=== PATIENT | male | born 1995 | race Caucasian/White ===

== ENCOUNTER 2017-07-13 10:37 | Emergency (ER) | payer OTHER ==
--- NOTE | 2017-07-13 10:45 | PDOC ---
History of Present Illness - General Chief Complaint: Injury Stated Complaint: NOSE INJURY Time Seen by Provider: 07/13/17 10:45 History Source: Patient Exam Limitations: No Limitations - History of Present Illness Initial Comments: 07/13/17 10:58 Pt presents to the ED complaining of pain and swelling to the left side of his nose after hitting his face against a dresser yesterday. Patient did not have LOC, or experience any other associated symptoms. Presents to the ED today because his nose became swollen and he is concerned that he may have a broken nose. Denies nose bleeds, pain or swelling to his eyes or visual complaints. Past History - Past Medical History Allergies/Adverse Reactions: Allergies Allergy/AdvReac Type Severity Reaction Status Date / Time No Known Allergies Allergy Verified 01/23/12 18:47 Home Medications: Ambulatory Orders NK [No Known Home Medication] 07/13/17 Psychiatric Problems: Yes Suicide Attempt (Hx): Yes - Immunization History Immunization Up to Date: Yes - Psycho/Social/Smoking Cessation Hx Anxiety: Yes Suicidal Ideation: No Smoking Status: Yes Smoking History: Current every day smoker Years of Tobacco Use: 0 Have you smoked in the past 12 months: Yes Number of Cigarettes Smoked Daily: 40 'Breaking Loose' booklet given: 02/16/15 Hx Alcohol Use: No Drug/Substance Use Hx: Yes Substance Use Type: Marijuana Review of Systems - Review of Systems Able to Perform ROS?: Yes Is the patient limited Maltese proficient: No HEENTM: Yes: Nose Pain. No: Symptoms Reported, See HPI, Eye Pain, Blurred Vision, Tearing, Recent change in vision, Double Vision, Cataracts, Ear Pain, Ocular Prothesis, Ear Discharge, Nose Congestion, Tinnitus, Nose Bleeding, Hearing Loss, Throat Pain, Throat Swelling, Mouth Pain, Dental Problems, Difficulty Swallowing, Mouth Swelling, Other *Physical Exam - Physical Exam Comments: 07/13/17 11:08 HEENT: positive: EOMI (+ tender, ecchymotic area to L side of nose. No septal hematoma. No other facial bone tenderness. ), CHANNING Neck: positive: Supple (no midline tenderness) Medical Decision Making - Medical Decision Making 07/13/17 10:52 Pt presents to the ED complaining of pain and swelling to his nose after striking his face on a dresser yesterday. Offered CT to evaluate for nasal bone fx, but does not want to wait. Will discharge home with referral to plastic surgery. 07/13/17 11:09 *DC/Admit/Observation/Transfer Diagnosis at time of Disposition: Traumatic ecchymosis of nose Qualifiers: Encounter type: initial encounter Qualified Code(s): S00.33XA - Contusion of nose, initial encounter - Discharge Dispostion Disposition: HOME Condition at time of disposition: Good - Referrals Referrals: Zack Colon MD [Staff Physician] - - Patient Instructions Printed Discharge Instructions: DI for Eye Contusion Additional Instructions: use ice on your nose for the next two days. Try to avoid nose blowing. Return to the ED for severe pain or swelling, changes in your vision, new or worsening symptoms.
[2017-07-13 10:51] VITALS: BP 120/65; PULSE 60; TEMP 98.1
== END 2017-07-13 11:10 | disposition home or self-care (01) ==
LOC: FER 10:37
DX: S00.33XA Contusion of nose, initial encounter (principal); W22.03XA Walked into furniture, initial encounter; Y93.89 Activity, other specified; Y92.009 Unspecified place in unspecified non-institutional (private) residence as the place of occurrence of the external cause; F17.210 Nicotine dependence, cigarettes, uncomplicated
CPT/HCPCS: 99283-25

== ENCOUNTER 2018-09-15 03:31 | Emergency (ER) | payer OTHER ==
[2018-09-15 03:52] VITALS: BP 111/68; PULSE 90; TEMP 100; BMI 20.2
--- NOTE | 2018-09-15 03:54 | PDOC ---
History of Present Illness - General Chief Complaint: Rash Stated Complaint: SORE THROAT/RASH Time Seen by Provider: 09/15/18 03:53 History Source: Patient Exam Limitations: No Limitations - History of Present Illness Initial Comments: 09/15/18 04:03 This is a 23-year-old male who comes in complaining of fever, sore throat, rash and feeling poorly times one day. The patient's immunizations are otherwise up-to-date. Patient denies history of strep throat in the past. PAST MEDICAL HISTORY: no significant history PAST SURGICAL HISTORY: no significant history FAMILY HISTORY: no pertinant history SOCIAL HISTORY: Pt lives with family and is employed. MEDICATIONS: reviewed ALLERGIES: As per nursing notes ROS General: + fevers or chills, no weakness, no weight loss HEENT: No change in vision. + sore throat,. No ear pain CardioVascular: No chest pain or shortness of breath Respiratory:No cough, or wheezing. Gastrointestinal: no nausea, vomiting, diarrhea or constipation, No rectal bleeding Genitourinary: No dysuria, hematuria, or frequency Musculoskeletal: . No joint pain or swelling Neurologic: No headache, vertigo, dizziness or loss of consciousness Psychiatric: nor depression Skin: No rashes or easy bruising Endocrine: no increased thirst or abnormal weight change Allergic: no skin or latex allergy, +rash All other systems reviewed and normal Exam: General: Well-nourished well-developed individual, no acute distress HEENT: Throat: Normal, tonsils normal, tonsils are enlarged bilaterally with an exudative pharyngitis Neck: Supple, no meningeal signs, bilateral submandibular lymphadenopathy Eyes::Pupils equal reactive and round, extraocular motion intact Chest: Nontender to palpation Cardiac: S1-S2 normal, regular rate and rhythm, no murmurs rubs or gallops Respiratory: Lungs clear to auscultation bilateral Abdomen: Soft, nondistended, normal bowel sounds, there is no tenderness on palpation diffusely Extremities: Warm, dry, no cyanosis, clubbing, or edema Skin: There is a fine malar rash over the trunk and extremities neck and face. There are areas of confluence. Neuro: Alert and oriented x3, CN II - XII intact, nonfocal exam with normal strength, normal sensation, normal reflexes, normal gait, Psych: Normal mood and affect Assessment and plan: This is a 23-year-old male who comes in with rash sore throat and fever. Patient symptoms are consistent with scarlet fever. Patient given Benadryl for the itching Bicillin L-A for the strep pharyngitis and 1 time dose of Decadron for the inflammation in the throat. Patient discharged home with his mother Past History - Past Medical History Allergies/Adverse Reactions: Allergies Allergy/AdvReac Type Severity Reaction Status Date / Time No Known Allergies Allergy Verified 01/23/12 18:47 Home Medications: Ambulatory Orders NK [No Known Home Medication] 07/13/17 COPD: No Psychiatric Problems: Yes - Immunization History Immunization Up to Date: Yes - Suicide/Smoking/Psychosocial Hx Smoking Status: Yes Smoking History: Current every day smoker Years of Tobacco Use: 0 Have you smoked in the past 12 months: Yes Number of Cigarettes Smoked Daily: 40 Information on smoking cessation initiated: Yes 'Breaking Loose' booklet given: 09/15/18 Hx Alcohol Use: No Drug/Substance Use Hx: Yes Substance Use Type: Marijuana *Physical Exam - Vital Signs Last Vital Signs Temp Pulse Resp BP Pulse Ox 100 F H 90 18 111/68 99 09/15/18 03:32 09/15/18 03:32 09/15/18 03:32 09/15/18 03:32 09/15/18 03:32 *DC/Admit/Observation/Transfer Diagnosis at time of Disposition: Scarlet fever - Discharge Dispostion Disposition: HOME Condition at time of disposition: Stable Decision to Admit order: No - Referrals Referrals: Mike Varela MD [Primary Care Provider] - - Patient Instructions Additional Instructions: [place] has scarlet fever. He was treated with antibiotics with a one-time shot that will last for the full 10 days, Otherwise Tylenol or Motrin as needed for pain or fevers Benadryl as needed for itching. Return to the emergency department immediately with ANY new, persistent or worsening symptoms. Continue any medications as previously prescribed by your physician. You should follow up with your primary doctor as soon as possible regarding today's emergency department visit. . Please make sure your doctor reviews the results of your emergency evaluation. Thank you for coming to the Emergency Department today for your care. It was a pleasure to see you today. Please note that your evaluation is INCOMPLETE until you follow-up with your doctor. - Post Discharge Activity
[2018-09-15] MEDS ORDERED: PENICILLIN G BENZATHINE 1,200,000 UNIT/2 ML PFS IM ONE ×2 (03:56→04:00)
[2018-09-15] MEDS ORDERED: DEXAMETHASONE SOD PHOSPHATE 10 MG/1 ML VIAL IM ONE (04:02)
[2018-09-15] MEDS ORDERED: diphenhydrAMINE HCL 25 MG CAPSULE (FP) PO ONE (04:05)
[2018-09-15] MEDS ORDERED: DEXAMETHASONE SOD PHOSPHATE 10 MG/1 ML VIAL ONE (04:05)
[2018-09-15] MEDS ORDERED: diphenhydrAMINE HCL 50 MG CAPSULE PO ONE (04:09)
== END 2018-09-15 04:13 | disposition home or self-care (01) ==
LOC: FER 03:31
PROC: 3E023GC Introduction of Other Therapeutic Substance into Muscle, Percutaneous Approach (ICD-10-PCS; principal; 2018-09-15)
PROC: 3E02329 Introduction of Other Anti-infective into Muscle, Percutaneous Approach (ICD-10-PCS; 2018-09-15)
DX: A38.9 Scarlet fever, uncomplicated (principal); F17.210 Nicotine dependence, cigarettes, uncomplicated
CPT/HCPCS: 96372; 99282-25; J1100

== ENCOUNTER 2019-02-14 01:40 | Emergency (ER) | payer OTHER ==
[2019-02-14 01:45] VITALS: BMI 18.8
--- NOTE | 2019-02-14 02:40 | PDOC ---
History of Present Illness - General Chief Complaint: Shortness of Breath Stated Complaint: SUBSTANCE ABUSE Time Seen by Provider: 02/14/19 02:29 History Source: Patient Exam Limitations: No Limitations - History of Present Illness Initial Comments: 02/14/19 05:00 23 yo M with no past medical history presents to the emergency department with chest pain that has been ongoing since 11:30 pm. Per the patient, he took ecstasy that he bought from a stranger in the "afternoon" yesterday and took it for a rave. At 11:30 pm, he began feeling sudden left chest wall pain that is described as a pressure, "like I am having a heart attack", 09/02, constant, without radiation with the following associative symptoms: SOB, tremors, and tactile stimulation. Per the patient, he did not use any other drugs. No hx of cardiac disease and positive familial cardiac history in grandfather at age 60. Denies the following: fevers, chills, nausea, vomiting, ears/nose/throat pain, visual changes, LOC, abdominal pain, dysuria, hematuria, diarrhea, hematochezia , and leg pain/swelling. Shx: None Meds: None Allergies: NKDA Social: Endorses tobacco, marijuana, and alcohol use. Past History - Past Medical History Allergies/Adverse Reactions: Allergies Allergy/AdvReac Type Severity Reaction Status Date / Time No Known Allergies Allergy Verified 02/14/19 01:44 Home Medications: Ambulatory Orders NK [No Known Home Medication] 07/13/17 COPD: No Psychiatric Problems: Yes - Immunization History Immunization Up to Date: Yes - Suicide/Smoking/Psychosocial Hx Smoking Status: Yes Smoking History: Unknown if ever smoked Years of Tobacco Use: 0 Have you smoked in the past 12 months: No Number of Cigarettes Smoked Daily: 40 Information on smoking cessation initiated: No 'Breaking Loose' booklet given: 09/15/18 Hx Alcohol Use: Yes Drug/Substance Use Hx: Yes Substance Use Type: Marijuana Review of Systems - Review of Systems Able to Perform ROS?: Yes Is the patient limited Mohawk proficient: No Constitutional: No: Chills, Diaphoresis, Fever, Weakness HEENTM: No: Eye Pain, Blurred Vision, Recent change in vision, Ear Pain, Nose Pain, Throat Pain, Mouth Pain Respiratory: Yes: Shortness of Breath. No: Cough, Hemoptysis Cardiac (ROS): Yes: Chest Pain. No: Lightheadedness, Palpitations, Syncope, Chest Tightness ABD/GI: No: Constipated, Diarrhea, Nausea, Poor Appetite, Poor Fluid Intake, Rectal Bleeding, Vomiting, Tarry Stools : No: Burning, Dysuria, Hematuria, Incontinence, Urgency Musculoskeletal: No: Back Pain, Joint Pain, Neck Pain Integumentary: No: Bruising, Erythema, Sweating Neurological: Yes: Tremors. No: Headache, Numbness, Tingling, Ataxia, Dizziness Psychiatric: No: Change in Appetite Endocrine: No: Unexplained Weight Gain Hematologic/Lymphatic: No: Anemia *Physical Exam - Vital Signs Last Vital Signs Temp Pulse Resp BP Pulse Ox 98.9 F 106 H 20 138/78 99 02/14/19 01:44 02/14/19 01:44 02/14/19 01:44 02/14/19 01:44 02/14/19 01:44 - Physical Exam General Appearance: Yes: Nourished, Appropriately Dressed, Intoxicated, Thin. No: Apparent Distress, Alcohol on Breath HEENT: positive: EOMI, CHANNING (pupils are dilated bilaterally), Normal Voice, Symmetrical, Pharynx Normal, Hearing Grossly Normal, Other (dry mucous membranes ). negative: Pale Conjunctivae, Scleral Icterus (R), Scleral Icterus (L), Muffled/Hoarse voice, Pharyngeal Erythema, Tonsillar Exudate, Tonsillar Erythema , Nasal Congestion, Rhinorrhea, Excessive drooling Neck: positive: Trachea midline, Supple. negative: Tender, Lymphadenopathy (R) , Lymphadenopathy (L), Tender lateral, Tender midline Respiratory/Chest: positive: Lungs Clear, Normal Breath Sounds. negative: Chest Tender, Respiratory Distress, Accessory Muscle Use, Crackles, Rales, Rhonchi, Stridor, Wheezing, Hyperresonant Cardiovascular: positive: Regular Rhythm, S1, S2, Tachycardia. negative: Systolic Murmur Gastrointestinal/Abdominal: positive: Normal Bowel Sounds, Flat, Soft. negative : Tender, Guarding, Rebound Lymphatic: negative: Adenopathy Musculoskeletal: positive: Normal Inspection. negative: CVA Tenderness, Vertebral Tenderness Extremity: positive: Normal Capillary Refill, Normal Inspection, Normal Range of Motion. negative: Tender, Swelling, Calf Tenderness Integumentary: positive: Normal Color, Dry, Warm. negative: Diaphoresis, Hives , Petechiae Neurologic: positive: health data analyst II-XII NML intact, Fully Oriented, Alert, Normal Mood/ Affect, Normal Response, Motor Strength 5/5, Other (tremulousness. consistent with sympathomimetic syndrome.) Moderate Sedation - Procedure Monitoring Vital Signs: Procedure Monitoring Vital Signs Temperature 98.9 F 02/14/19 01:44 Pulse Rate 106 H 02/14/19 01:44 Respiratory Rate 20 02/14/19 01:44 Blood Pressure 138/78 02/14/19 01:44 O2 Sat by Pulse Oximetry (%) 99 02/14/19 01:44 ED Treatment Course - LABORATORY CBC & Chemistry Diagram: 02/14/19 03:08 02/14/19 03:08 Medical Decision Making - Medical Decision Making 23 yo M with no past medical history presents to the emergency department with chest pain that has been ongoing since 11:30 pm. Initial vitals: Initial Vital Signs Temp Pulse Resp BP Pulse Ox 98.9 F 106 H 20 138/78 99 02/14/19 01:44 02/14/19 01:44 02/14/19 01:44 02/14/19 01:44 02/14/19 01:44 Work up: ddx: ingestion of toxic dose of ecstasy. concerns that drug could be laced with additional illicit drugs causing sympathomimetic syndrome like effects. concerns laced with meth vs cocaine vs fentanyl (less likely). patient's chest pain can be of concern from cocaine induced NC. will assess ACS. concerns for hyponatremia and rhabdo with ecstasy use. orders: cbc, cmp, trops, ekg, cxr, ua, urine culture, urine tox interventions: ativan and 1 L ns. Laboratory Tests 02/14/19 02/14/19 02/14/19 03:08 03:08 03:08 WBC 8.3 RBC 4.61 Hgb 14.8 Hct 41.3 MCV 89.5 MCH 32.0 MCHC 35.8 RDW 12.3 Plt Count 211 MPV 9.4 Absolute Neuts (auto) 4.7 Neutrophils % 56.1 Lymphocytes % 33.7 Monocytes % 9.8 Eosinophils % 0.2 Basophils % 0.2 Nucleated RBC % 0 PT with INR 14.60 H INR 1.23 H PTT (Actin FS) 30.8 Sodium 134 L Potassium 4.3 Chloride 103 Carbon Dioxide 23 Anion Gap 9 BUN 8 Creatinine 0.9 Creat Clearance w eGFR 105.52 Random Glucose 100 Calcium 9.1 Total Bilirubin 2.0 H AST 91 H ALT 106 H Alkaline Phosphatase 93 Creatine Kinase 503 H Creatine Kinase Index 1.0 CK-MB (CK-2) 5.2 H Troponin I < 0.02 Total Protein 7.9 Albumin 4.2 Urine Color Urine Appearance Urine pH Ur Specific [place] Urine Protein Urine Glucose (UA) Urine Ketones Urine Blood Urine Nitrite Urine Bilirubin Urine Urobilinogen Ur Leukocyte Esterase Opiates Screen Methadone Screen Barbiturate Screen Phencyclidine Screen Ur Amphetamines Screen MDMA (Ecstasy) Screen Benzodiazepines Screen Cocaine Screen U Marijuana (THC) Screen 02/14/19 02/14/19 03:35 03:35 WBC RBC Hgb Hct MCV MCH MCHC RDW Plt Count MPV Absolute Neuts (auto) Neutrophils % Lymphocytes % Monocytes % Eosinophils % Basophils % Nucleated RBC % PT with INR INR PTT (Actin FS) Sodium Potassium Chloride Carbon Dioxide Anion Gap BUN Creatinine Creat Clearance w eGFR Random Glucose Calcium Total Bilirubin AST ALT Alkaline Phosphatase Creatine Kinase Creatine Kinase Index CK-MB (CK-2) Troponin I Total Protein Albumin Urine Color Yellow Urine Appearance Clear Urine pH 8.0 Ur Specific [place] 1.008 L Urine Protein Negative Urine Glucose (UA) Negative Urine Ketones 2+ H Urine Blood Negative Urine Nitrite Negative Urine Bilirubin Negative Urine Urobilinogen 1.0 Ur Leukocyte Esterase Negative Opiates Screen Negative Methadone Screen Negative Barbiturate Screen Negative Phencyclidine Screen Negative Ur Amphetamines Screen Positive A* MDMA (Ecstasy) Screen Negative Benzodiazepines Screen Negative Cocaine Screen Positive A* U Marijuana (THC) Screen Positive A* urine tox shows positive amphetamines, cocaine, and marijuana and negative for MDMA. patient's creatinine kinase is 503 with negative troponin with normal sodium. patient has elevated LFTs. will get second troponin to acs rule out. 02/14/19 05:21 02/14/19 05:21 02/14/19 07:14 Heart rate was 96 on reassessment at the time of discharge. *DC/Admit/Observation/Transfer Diagnosis at time of Disposition: Substance abuse - Discharge Dispostion Disposition: HOME Decision to Admit order: No - Referrals Referrals: [facility] [place] [Provider Group] - Patient Instructions Printed Discharge Instructions: DI for Cocaine Use Disorder Additional Instructions: you were seen in the emergency department for the evaluation of your substance use. your labs show no heart damage and no kidney damage. your xray was within normal limits. please follow up with your primary medical doctor within 1 week after discharge for follow up care and management. please abstain from drug use. please return to the emergency department if they have worsening symptoms or new concerning symptoms such as altered level of consciousness, inability to urinate, and confusion. thank you. - Post Discharge Activity
[2019-02-14] MEDS ORDERED: SODIUM CHLORIDE 1,000 ML IV STA ×2 (02:51→06:19)
[2019-02-14] MEDS ORDERED: LORazepam 2 MG/ML SDV VIAL ONE ×2 (02:58→06:30)
--- NOTE | 2019-02-14 03:18 | PDOC ---
Attending Attestation - Resident Resident Name: Dionte Christensen - ED Attending Attestation I have performed the following: I have examined & evaluated the patient, The case was reviewed & discussed with the resident, I agree w/resident's findings & plan, Exceptions are as noted - HPI HPI: 02/14/19 03:15 23 M with no PMH presents to ED after ingesting ecstasy tablet. Pt was at [facility] and was given a tablet of ecstasy by a stranger. Shortly afterwards, pt began to experience palpitations, chest pressure, and anxiety. Pt denies any other coingestions. He currently complains of mild chest pressure and a "crawling" sensation in his skin. - Physicial Exam PE: 02/14/19 03:17 GENERAL: Awake, alert, and fully oriented, in no acute distress. HEAD: No signs of trauma EYES: + dilated pupils, EOMI, sclera anicteric, conjunctiva clear ENT: Auricles normal inspection, hearing grossly normal, nares patent, oropharynx clear without exudates. Moist mucosa NECK: Nontender, no stepoffs, Normal ROM, supple, no lymphadenopathy, JVD, or masses LUNGS: Breath sounds equal, clear to auscultation bilaterally. No wheezes, and no crackles HEART: Regular rate and rhythm, normal S1 and S2, no murmurs, rubs or gallops ABDOMEN: Soft, nontender, normoactive bowel sounds. No guarding, no rebound. No masses EXTREMITIES: Normal range of motion, no edema. No clubbing or cyanosis. No cords, erythema, or tenderness NEUROLOGICAL: Cranial nerves II through XII intact. 5/5 strength and sensation in all extremities, Normal speech, normal gait, normal cerebellar function SKIN: Warm, Dry, normal turgor, no rashes or lesions noted. - Medical Decision Making 02/14/19 03:17 23 M with chest pain, anxiety after ingesting ecstasy tablet. - Labs, trop - EKG - IVF, benzos PRN 02/14/19 05:27 Labs wnl Trop negative EKG unremarkable Utox + for amphetamine, cocaine, marijuana Pt reassessed - now asymptomatic s/p ativan Vitals improved, HR now in 90s Pt is well appearing, with normal vitals. Clinically stable for DC at this time. I discussed the physical exam findings, ancillary test results and final diagnoses with the patient. I answered all of the patient's questions. The patient was satisfied with the care received and felt comfortable with the discharge plan and treatment plan. The patient agrees to follow up with the primary care physician within 24-72 hours.
[2019-02-14 03:36] LABS: BASO % 0.2 % (0-2.0); EOS % 0.2 % (0-4.5); HEMATOCRIT 41.3 % (35.4-49); HEMOGLOBIN 14.8 GM/dL (11.7-16.9); LYMPH % 33.7 % (8-40); MCHC 35.8 g/dl (32.0-35.9); MEAN CELL VOLUME 89.5 fl (80-96); MEAN PLT VOLUME 9.4 fl (7.5-11.1); MONO % 9.8 % (3.8-10.2); NEUT % 56.1 % (42.8-82.8); PLATELET COUNT 211 K/MM3 (134-434); RBC 4.61 M/mm3 (4.00-5.60); RDW 12.3 % (11.9-15.9); WHITE BLOOD COUNT 8.3 K/mm3 (4.0-10.0)
[2019-02-14 03:43] LABS: URINE APPEARANCE CLEAR; URINE BILIRUBIN NEGATIVE (<2.0 mg/dL); URINE COLOR YELLOW; URINE GLUCOSE (UA) NEGATIVE (NEGATIVE); URINE KETONE 2+ (NEGATIVE); URINE LEUK ESTERASE NEGATIVE (NEGATIVE); URINE NITRITE NEGATIVE (NEGATIVE); URINE PROTEIN NEGATIVE (NEGATIVE)
[2019-02-14 03:53] LABS: INR 1.23 (0.83-1.09); PROTHROMBIN TIME (PATIENT) 14.6 SEC (9.7-13.0)
[2019-02-14 03:56] LABS: ACTIVATED PTT 30.8 SECONDS (25.2-36.5)
[2019-02-14 04:01] LABS: METHADONE, UR NEGATIVE ng/ml (CUTOFF=300); OPIATES, URI NEGATIVE ng/ml (CUTOFF=300); PHENCYCLIDINE,URINE NEGATIVE ng/ml (CUTOFF=25); URINE BARBITURATES NEGATIVE ng/ml (CUTOFF=200); URINE BENZODIAZEPINES NEGATIVE ng/ml (CUTOFF=200)
[2019-02-14 04:06] LABS: COCAINE, UR POSITIVE ng/ml (CUTOFF=300); URINE AMPHETAMINES POSITIVE ng/ml (CUTOFF=500)
[2019-02-14 04:09] LABS: ALBUMIN 4.2 g/dl (3.4-5.0); ALK PHOS 93 U/L (45-117); ANION GAP 9 MMOL/L (8-16); BLOOD UREA NITROGEN 8 mg/dL (7-18); CALCIUM 9.1 mg/dL (8.5-10.1); CHLORIDE 103 mmol/L (98-107); CO2 23 mmol/L (21-32); CREATININE 0.9 mg/dL (0.55-1.3); GLUCOSE,RANDOM 100 mg/dL (74-106); POTASSIUM 4.3 mmol/L (3.5-5.1); SGOT/AST 91 U/L (15-37); SGPT/ALT 106 U/L (13-61); SODIUM 134 mmol/L (136-145); TOT PROT 7.9 g/dl (6.4-8.2)
[2019-02-14 06:01] VITALS: BP 136/84; PULSE 103; TEMP 98.4
--- NOTE | 2019-02-14 23:48 | EKG ---
Test Reason : Blood Pressure : / mmHG Vent. Rate : 103 BPM Atrial Rate : 103 BPM P-R Int : 120 ms QRS Dur : 090 ms QT Int : 370 ms P-R-T Axes : 077 017 049 degrees QTc Int : 484 ms POOR DATA QUALITY, INTERPRETATION MAY BE ADVERSELY AFFECTED SINUS TACHYCARDIA MINIMAL VOLTAGE CRITERIA FOR LVH, MAY BE NORMAL VARIANT BORDERLINE ECG NO PREVIOUS ECGS AVAILABLE Confirmed by MODESTO LU, KIMBERLEY ([id number]) on 02/14/2019 11:47:53 PM Referred By: Confirmed By:KIMBERLEY SALVADOR MD
== END 2019-02-14 07:35 | disposition home or self-care (01) ==
LOC: JER 01:40
PROC: 3E0337Z Introduction of Electrolytic and Water Balance Substance into Peripheral Vein, Percutaneous Approach (ICD-10-PCS; principal; 2019-02-14)
PROC: 3E033NZ Introduction of Analgesics, Hypnotics, Sedatives into Peripheral Vein, Percutaneous Approach (ICD-10-PCS; 2019-02-14)
PROC: 3E033NZ Introduction of Analgesics, Hypnotics, Sedatives into Peripheral Vein, Percutaneous Approach (ICD-10-PCS; 2019-02-14)
DX: F15.10 Other stimulant abuse, uncomplicated (principal)
CPT/HCPCS: 36415; 71045-TC-FY; 80053; 80307; 81003; 82550; 82553; 84484; 85025; 85610; 85730; 93005; 93010; 96361; 96374; 96376; 99284-25; J7030

== ENCOUNTER 2019-08-22 08:22 | Emergency (ER) | payer OTHER ==
[2019-08-22] MEDS ORDERED: LORazepam 1 MG TABLET PO ONE (08:30)
[2019-08-22 08:36] VITALS: TEMP 98.4; BMI 20.7
[2019-08-22] MEDS ORDERED: LORazepam 0.5 MG TABLET ONE (08:39)
--- NOTE | 2019-08-22 08:40 | PDOC ---
History of Present Illness - General Chief Complaint: Chest Pain Stated Complaint: CHEST PAIN AFTER DOING COCAINE History Source: Patient Exam Limitations: No Limitations - History of Present Illness Initial Comments: 08/22/19 08:37 24 yo male h/o substance abuse states he was drinking last night and used cocain. is suddently feeling anxious. having chest pain. denies sob. no syncope. denies other drug use except cigarettes. no h/o blood clots. no h/o suddent syncope. states used cocaine one hr ago. Past History - Past Medical History Allergies/Adverse Reactions: Allergies Allergy/AdvReac Type Severity Reaction Status Date / Time No Known Allergies Allergy Verified 08/22/19 08:28 Home Medications: Ambulatory Orders NK [No Known Home Medication] 08/22/19 COPD: No Psychiatric Problems: Yes (ADD) - Immunization History Immunization Up to Date: Yes - Psycho Social/Smoking Cessation Hx Smoking Status: Yes Smoking History: Current every day smoker Years of Tobacco Use: 0 Have you smoked in the past 12 months: No Number of Cigarettes Smoked Daily: 2 Information on smoking cessation initiated: Yes 'Breaking Loose' booklet given: 09/15/18 Hx Alcohol Use: No Drug/Substance Use Hx: No Substance Use Type: Marijuana Review of Systems - Review of Systems Constitutional: No: Chills, Diaphoresis HEENTM: No: Eye Pain Respiratory: No: Cough, Orthopnea, Shortness of Breath Cardiac (ROS): Yes: Chest Pain ABD/GI: No: Diarrhea, Nausea, Vomiting : No: Burning, Dysuria Integumentary: No: Bruising, Change in Color Neurological: No: Headache All Other Systems: Reviewed and Negative *Physical Exam - Vital Signs Last Vital Signs Temp Pulse Resp BP Pulse Ox 98.4 F 103 H 16 109/79 99 08/22/19 08:23 08/22/19 08:23 08/22/19 08:23 08/22/19 08:23 08/22/19 08:23 - Physical Exam Comments: 08/22/19 08:38 awake alert lungs clear bilat heart rrr no mrg abd soft nt nd ext wwp. skin warm and dry no rash. psych anxious but directable. Heart Score/ECG Review #1 General ECG Interpretation: Sinus Rhythm, Normal Rate (79), Normal Intervals, No acute ischemic changes Medical Decision Making - Medical Decision Making 08/22/19 08:39 24 yo male with acute cocaine / etoh intoxication. plan ekg. benzos to counteract se of cocaine. observation and reassessment. 08/22/19 09:37 pt feeling much improved dc home. Discharge - Discharge Information Problems reviewed: Yes Clinical Impression/Diagnosis: Substance abuse Condition: Improved Disposition: HOME - Admission No - Follow up/Referral Referrals: Mike Varela MD [Primary Care Provider] - - Patient Discharge Instructions Patient Printed Discharge Instructions: Cocaine Use Disorder Additional Instructions: you should follow up with your primary doctor. avoid drug use. if you would like to go to rehab for your drug problem you can go to [facility] detox at [address] [place] [address]. just go to intake area. return for any problems or concerns. - Post Discharge Activity
[2019-08-22 09:30] VITALS: BP 120/73; PULSE 77
--- NOTE | 2019-08-23 13:22 | EKG ---
Test Reason : Blood Pressure : / mmHG Vent. Rate : 079 BPM Atrial Rate : 079 BPM P-R Int : 156 ms QRS Dur : 094 ms QT Int : 382 ms P-R-T Axes : 066 -13 029 degrees QTc Int : 438 ms NORMAL SINUS RHYTHM NORMAL ECG WHEN COMPARED WITH ECG OF 14-FEB-2019 01:41, NO SIGNIFICANT CHANGE WAS FOUND Confirmed by GATO SALAZAR MD ([id number]) on 08/23/2019 1:22:09 PM Referred By: WESTON BOSTON Confirmed By:GATO SALAZAR MD
== END 2019-08-22 09:45 | disposition home or self-care (01) ==
LOC: FER 08:22
DX: F19.10 Other psychoactive substance abuse, uncomplicated (principal); F17.210 Nicotine dependence, cigarettes, uncomplicated
CPT/HCPCS: 93005; 99283-25

== ENCOUNTER 2019-10-29 20:45 | Emergency (ER) | payer OTHER ==
[2019-10-29 20:51] VITALS: BMI 20.7
--- NOTE | 2019-10-29 22:12 | PDOC ---
History of Present Illness - General Chief Complaint: Ingestion Stated Complaint: INGESTION OF "MARIBETH" Time Seen by Provider: 10/29/19 21:34 History Source: Patient Exam Limitations: No Limitations - History of Present Illness Initial Comments: 10/29/19 22:08 This is a 24-year-old male who comes in complaining of feeling anxious approximately 1-1/2 hours after ingesting some MDMA in the form of Maribeth's. Patient said this is the first time he has had mollies. Patient does have a history of ADHD. Patient is not on any medications for his ADHD. Patient is otherwise healthy and denies any medical problems. Patient denies any palpitations, diaphoresis, shortness of breath. Patient said he also smoked some marijuana Past Medical History: ADHD Social history: Lives with family. Patient has a history of smoking, alcohol use, illegal drug use including marijuana, cocaine and Maribeth's Surgical history: None General: No fevers or chills, no weakness, no weight loss HEENT: No change in vision. No sore throat,. No ear pain CardioVascular: no chest discomfort. No shortness of breath Respiratory:No cough, or wheezing. Gastrointestinal: no nausea, vomiting, diarrhea or constipation, No rectal bleeding Genitourinary: No dysuria, hematuria, or frequency Musculoskeletal: No joint or muscle pain or swelling Neurologic: No headache, vertigo, dizziness or loss of consciousness Psychiatric: nor depression Skin: No rashes or easy bruising Endocrine: no increased thirst or abnormal weight change Allergic: no skin or latex allergy All other systems reviewed and normal Exam: General: Well-nourished well-developed individual, anxious HEENT: Throat: Normal, tonsils normal, no erythema or exudate Neck: Supple, no meningeal signs, no lymphadenopathy Eyes::Pupils equal reactive and round, extraocular motion intact Chest: Nontender to palpation Cardiac: S1-S2 normal, regular rate and rhythm, no murmurs rubs or gallops Respiratory: Lungs clear to auscultation bilateral Abdomen: Soft, nondistended, normal bowel sounds, there is no tenderness on palpation diffusely Extremities: Warm, dry, no cyanosis, clubbing, or edema Skin: No rashes Neuro: Alert and oriented x3, CN II - XII intact, nonfocal exam with normal strength, normal sensation, normal reflexes, normal gait, Psych: Normal mood and affect Assessment and plan: This is a 24-year-old male who comes in complaining of anxiety post smoking some marijuana and ingesting MDMA. Patient was observed for 2 hours without any adverse side effects and improvement of his anxiety. Patient discharged we will follow-up with his primary care doctor. Past History - Past Medical History Allergies/Adverse Reactions: Allergies Allergy/AdvReac Type Severity Reaction Status Date / Time No Known Allergies Allergy Verified 10/29/19 20:46 Home Medications: Ambulatory Orders NK [No Known Home Medication] 08/22/19 COPD: No Psychiatric Problems: Yes (ADD) - Immunization History Immunization Up to Date: Yes - Psycho Social/Smoking Cessation Hx Smoking Status: Yes Smoking History: Current every day smoker Years of Tobacco Use: 0 Have you smoked in the past 12 months: Yes Number of Cigarettes Smoked Daily: 1 Information on smoking cessation initiated: Yes 'Breaking Loose' booklet given: 09/15/18 Hx Alcohol Use: No Drug/Substance Use Hx: (cocaine) Substance Use Type: Marijuana *Physical Exam - Vital Signs Last Vital Signs Temp Pulse Resp BP Pulse Ox 97.6 F 82 18 137/83 98 10/29/19 20:45 10/29/19 20:45 10/29/19 20:45 10/29/19 20:45 10/29/19 20:45 Discharge - Discharge Information Problems reviewed: Yes Clinical Impression/Diagnosis: Anxiety about health, Substance abuse Condition: Stable Disposition: HOME - Admission No - Follow up/Referral - Patient Discharge Instructions Additional Instructions: Return to the emergency department immediately with ANY new, persistent or worsening symptoms. Continue any medications as previously prescribed by your physician. You should follow up with your primary doctor as soon as possible regarding today's emergency department visit. . Please make sure your doctor reviews the results of your emergency evaluation. Thank you for coming to the Emergency Department today for your care. It was a pleasure to see you today. Please note that your evaluation is INCOMPLETE until you follow-up with your doctor. - Post Discharge Activity
[2019-10-29 22:20] VITALS: BP 110/68; PULSE 80; TEMP 98.4
== END 2019-10-29 22:22 | disposition home or self-care (01) ==
LOC: FER 20:45
DX: F15.90 Other stimulant use, unspecified, uncomplicated (principal); F06.4 Anxiety disorder due to known physiological condition; F19.19 Other psychoactive substance abuse with unspecified psychoactive substance-induced disorder; F17.210 Nicotine dependence, cigarettes, uncomplicated; F98.8 Other specified behavioral and emotional disorders with onset usually occurring in childhood and adolescence
CPT/HCPCS: 99282-25

== ENCOUNTER 2020-10-16 21:06 | Emergency (ER) | payer OTHER ==
[2020-10-16 21:13] VITALS: BP 124/78; PULSE 90; TEMP 98.3; BMI 21.4
== END 2020-10-16 21:54 | disposition home or self-care (01) ==
LOC: FER 21:06
DX: F19.10 Other psychoactive substance abuse, uncomplicated (principal)
CPT/HCPCS: 99282-25

== ENCOUNTER 2021-03-15 00:51 | Emergency (ER) | payer OTHER ==
[2021-03-15 01:20] VITALS: BP 120/77; PULSE 83; TEMP 97.5; BMI 20.7
== END 2021-03-15 04:20 | disposition left against medical advice (07) ==
LOC: FER 00:51
PROC: 0HQDXZZ Repair Right Lower Arm Skin, External Approach (ICD-10-PCS; principal; 2021-03-15)
DX: S51.811A Laceration without foreign body of right forearm, initial encounter (principal); T14.91XA Suicide attempt, initial encounter
CPT/HCPCS: 12001-25; 99284-25

== ENCOUNTER 2021-03-22 16:27 | Emergency (ER) | payer OTHER ==
[2021-03-22 16:50] VITALS: BP 110/65; PULSE 62; TEMP 99; BMI 18.4
== END 2021-03-22 16:56 | disposition home or self-care (01) ==
LOC: FER 16:27
DX: Z48.02 Encounter for removal of sutures (principal)
CPT/HCPCS: 99281-25